=== PATIENT | female | born 1970 ===

== ENCOUNTER 2023-12-07 10:36 | Emergency (ER) | payer MEDICAID ==
[~2023-12-07] VITALS: Ht 160 cm; Wt 104.3 kg
[2023-12-07 11:13] LABS: BASOPHILS ABSOLUTE AUTO 0.05 K/mm3 (0.00-0.23); BASOPHILS PERCENT AUTO 1 % (0-2); EOSINOPHILS ABSOLUTE AUTO 0.08 K/mm3 (0.00-0.68); EOSINOPHILS PERCENT AUTO 1 % (0-6); Hematocrit 48.9 % (33.0-51.0); IMMATURE GRAN ABSOLUTE AUTO 0.02 K/mm3 (0.00-0.10); IMMATURE GRAN PERCENT AUTO 0 % (0-1); LYMPHOCYTES ABSOLUTE AUTO 1.75 K/mm3 (0.84-5.20); LYMPHOCYTES PERCENT AUTO 25 % (21-46); MONOCYTES ABSOLUTE AUTO 0.36 K/mm3 (0.16-1.47); MONOCYTES PERCENT AUTO 5 % (4-13); Mean Corpuscular HGB 34.8 pg (26.0-34.0); Mean Corpuscular HGB Conc 34.8 g/dL (31.5-36.5); Mean Corpuscular Volume 100 fL (80-100); Mean Platelet Volume 9.7 fL (9.1-12.4); NEUTROPHILS ABSOLUTE AUTO 4.73 K/mm3 (1.96-9.15); NEUTROPHILS PERCENT AUTO 68 % (41-73); Platelet Count 178 K/mm3 (150-400); RDW Coefficient Variation 12.7 % (11.7-14.2); RDW Standard Deviation 47.7 fL (35.1-46.3); Red Blood Cell Count 4.88 M/mm3 (3.80-5.20); White Blood Cell Count 6.99 K/mm3 (4.00-11.30)
[2023-12-07 11:34] LABS: Albumin, Blood 3.5 g/dL (3.4-5.0); Albumin/Globulin Ratio 0.9 (0.8-1.8); Bilirubin, Total 0.4 mg/dL (0.1-1.0); Bun/Creatinine Ratio 14.1 (12.0-20.0); Calcium, Blood 9.5 mg/dL (8.5-10.1); Creatinine, Blood 0.92 mg/dL (0.40-1.00); Globulin, Blood 4.1 g/dL (2.2-4.0); Potassium, Blood 4.7 mmol/L (3.5-5.5); Total Protein, Blood 7.6 g/dL (6.4-8.2)
[2023-12-07] MEDS ORDERED: TRELEGY ELLIPT1 EAC1 INH (15:17)
[2023-12-07] MEDS ORDERED: EPINEPHRIN0.3 MG/0.1 IM (15:18)
[2023-12-07] MEDS ORDERED: FERROUS SULFATE 325 MG (15:18)
[2023-12-07] MEDS ORDERED: Cetirizine HCl10 MG PO (15:18)
[2023-12-07] MEDS ORDERED: CYCL10 PO (15:18)
[2023-12-07] MEDS ORDERED: LEVETIRACETAM50014 PO (15:18)
[2023-12-07] MEDS ORDERED: AMIT50 PO (15:18)
[2023-12-07] MEDS ORDERED: NITROGLYCERIN0.4 M3 SL (15:18)
[2023-12-07] MEDS ORDERED: PROZAC2010 PO (15:18)
[2023-12-07] MEDS ORDERED: PREGABALIN75 MG PO (15:19)
[2023-12-07] MEDS ORDERED: QULIPTA60 MG PO (15:19)
[2023-12-07] MEDS ORDERED: IPRAT-ALBUT 0.5-3 ML (15:19)
[2023-12-07] MEDS ORDERED: FUROSEMIDE20 MG PO (15:19)
== END 2023-12-07 15:17 | disposition home or self-care (01) ==
LOC: ER 10:36
PROVIDERS: Physician Assistant
DX: J44.9 Chronic obstructive pulmonary disease, unspecified (principal); F17.200 Nicotine dependence, unspecified, uncomplicated; Z88.0 Allergy status to penicillin; Z88.2 Allergy status to sulfonamides; Z88.5 Allergy status to narcotic agent
CPT/HCPCS: 71046; 80053; 83880; 84484; 85025; 93005; 93010; 99285-25